=== PATIENT | male | born 1960 ===

== ENCOUNTER → 2021-07-26 | Day surgery (SDC) | payer OTHER ==
[~2021-07-26] VITALS: Ht 182.9 cm; Wt 88.0 kg
[~2021-07-26] MED LIST: AMIT75TA PO; AMLO-187 PO; ATOR80TA72 PO; FINA5TAB4 PO; HYDR12.58 PO; IV RINGERS,LACTATED 1000ML 1,000 ML IV SCH; LIDOCAINE 2% PF 5 ML VIAL. ONE; PROPOFOL 10 MG/ML (20ML) VIAL. IV ONE
[2021-07-26 08:41] VITALS: BP 135/87
--- NOTE | 2021-07-26 09:07 | PDOC2 ---
CONSULT Date of Consult Date of Consult DATE: 07/26/21 TIME: 09:04 Reason for Consult Reason for Consult: CRC screening Identification/Chief Complaint Chief Complaint 61 year old male seen with above. He has daily bowel movements wihtout diarrhea or constipation. Weight and appetite are stable. No melena and/or hematochezia is present. No family history of colon cancer is noted. He otherwise is without additional complaints. Past Medical History Cardiovascular: HTN, Hyperlipidemia Past Surgical History Past Surgical History: Arthroscopy (knee), Other (back surgery) Family History Family History: No Significant Social History 1 pack per day ALCOHOL: social Current Medications Current Medications Current Medications Ringer's Solution 1,000 ml @ 75 mls/hr [id number] IV Last administered on 07/26/21at 08:47; Start 07/26/21 at 08:45; Stop 07/27/21 at 08:44 Propofol (Diprivan) 200 mg STK-MED ONCE IV ; Start 07/26/21 at 08:55; Stop 07/26/21 at 08:55; Status DC Lidocaine HCl (Lidocaine Pf 2% Vial) 5 ml STK-MED ONCE .ROUTE ; Start 07/26/21 at 08:55; Stop 07/26/21 at 08:55; Status DC Allergies Allergies: Coded Allergies: No Known Drug Allergies (Unverified , 07/26/21) Physical Exam General: Alert, Oriented X3 Lungs: Clear to auscultation Heart: Regular rate Abdomen: Normal bowel sounds, Soft, No tenderness Vitals VITALS Vital Signs Date Time Temp Pulse Resp B/P (MAP) Pulse Ox O2 Delivery O2 Flow Rate FiO2 07/26/21 08:41 97.6 101 20 98 97.6 Assessment/Plan Assessment/Plan colorectal cancer screening- is recommended at this time. R/B discussed with patient who is wiling to proceed. ANTWON SORIANO MD July 26, 2021 09:07
[2021-07-26 10:02] VITALS: BP 117/79
== END | disposition home or self-care (01) ==
LOC: ENDOS 08:12
PROVIDERS: ATTEND Internal Medicine Gastroenterology
DX: Z12.11 Encounter for screening for malignant neoplasm of colon (principal); K64.0 First degree hemorrhoids; K63.5 Polyp of colon; K63.89 Other specified diseases of intestine; I10 Essential (primary) hypertension; E78.00 Pure hypercholesterolemia, unspecified; N40.0 Benign prostatic hyperplasia without lower urinary tract symptoms; F41.9 Anxiety disorder, unspecified; F32.9 Major depressive disorder, single episode, unspecified; Z87.891 Personal history of nicotine dependence; Z79.899 Other long term (current) drug therapy; Z98.890 Other specified postprocedural states
CPT/HCPCS: 45385; 88305; J2704